=== PATIENT | female | born 1985 ===

== ENCOUNTER 2018-10-31 13:12 | Outpatient (AMBR) | payer MEDICAID, SELFPAY ==
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
== END 2018-10-31 23:59 | disposition home or self-care (01) ==
PROVIDERS: PCP Orthopaedic Surgery; Referring Provider Orthopaedic Surgery; Visit Provider Orthopaedic Surgery
DX: S82.109D Unspecified fracture of upper end of unspecified tibia, subsequent encounter for closed fracture with routine healing (principal); R26.2 Difficulty in walking, not elsewhere classified; Z96.698 Presence of other orthopedic joint implants; V89.2XXD Person injured in unspecified motor-vehicle accident, traffic, subsequent encounter
CPT/HCPCS: 97162